=== PATIENT | female | born 1990 | race Two or more races ===

== ENCOUNTER 2017-11-22 11:38 | Emergency (ER) | payer MEDICAID ==
[~2017-11-22] VITALS: Ht 167.6 cm; Wt 59.0 kg
--- NOTE | 2017-11-22 12:00 | NUR ---
AAOX3, CAME TO ER S/P BARTHOLIN'S CYST TREATED AT [facility] 5 DAYS AGO, CATHETER FELL OUT 2 2 DAYS AGO. STILL IN PAIN. SKIN IS WARM AND DRY. AWAITING MD FOR EVAL.
[2017-11-22] MEDS ORDERED: IV NS 0.9% 1,000 ML BAG IV ONE (12:30)
[2017-11-22] MEDS ORDERED: ONDANSETRON HCL/PF 4 MG/2 ML VIAL IVP ONE (12:30)
[2017-11-22] MEDS ORDERED: MORPHINE SULFATE INJ 2 MG/ML DISP.SYRIN IV ONE (12:30)
[2017-11-22] MEDS ORDERED: MORPHINE SULFATE INJ 4 MG/ML DISP.SYRIN ONE (12:51)
[2017-11-22] MEDS ORDERED: ONDANSETRON HCL/PF 4 MG/2 ML VIAL ONE (12:51)
[2017-11-22 12:57] LABS: EOSINOPHILS % (AUTO) 0.3 % (0.0-6.0); HEMATOCRIT 31 % (33-45); HEMOGLOBIN 10.3 g/dL (11.5-14.8); LYMPHOCYTES # (AUTO) 7.9 /CMM (0.8-4.8); LYMPHOCYTES % (AUTO) 91.7 % (20.0-44.0); MEAN CORPUSCULAR HEMOGLOBIN 33 PG (26.0-33.0); MEAN CORPUSCULAR HGB CONC 34 g/dl (31.0-36.0); MEAN CORPUSCULAR VOLUME 99 fL (82-100); MONOCYTES # (AUTO) 0.1 /CMM (0.1-1.30); MONOCYTES % (AUTO) 0.8 % (2.0-12.0); NEUTROPHILS # (AUTO) 0.6 /CMM (1.8-8.9); NEUTROPHILS % (AUTO) 7.2 % (43.0-81.0); PLATELET COUNT (AUTO) 82 /CMM (150-450); RDW COEFFICIENT OF VARIATION 12.9 (11.5-15.0); WHITE BLOOD COUNT (AUTO) 8.6 K/uL (4.3-11.0)
[2017-11-22 13:04] LABS: CALCIUM, SERUM 9.7 mg/dL (8.5-10.1); CREATININE 0.8 mg/dL (0.6-1.3); POTASSIUM 3.9 mmol/L (3.5-5.1)
--- NOTE | 2017-11-22 13:20 | NUR ---
Patient is resting comfortably in bed with eyes closed. Easily aroused. VSS
[2017-11-22 13:42] LABS: LYMPHOCYTES % (MANUAL) 88 % (16-48); MONOCYTES % (MANUAL) 2 % (0-11.0); NEUTROPHILS % (MANUAL) 7 (42-76); REACTIVE LYMPHOCYTES 3 % (0-0)
[2017-11-22] MEDS ORDERED: CT SWABBABLE VALVE TRANS SET 1 EA INFUS.SET MC ONE (13:53)
[2017-11-22] MEDS ORDERED: IOHEXOL-300 100 ML VIAL IV ONE (13:53)
[2017-11-22] MEDS ORDERED: IV NS 0.9% 250 ML IV ONE (13:54)
[2017-11-22 14:12] LABS: APPEARANCE,URINE Clear (CLEAR); BILIRUBIN,URINE Negative (NEGATIVE); BLOOD, URINE Trace-intact Ery/uL (NEGATIVE); COLOR,URINE Yellow (YELLOW); KETONES,URINE Negative (NEGATIVE); LEUKOCYTE ESTERASE ,URINE Negative (NEGATIVE); NITRITE, URINE Negative (NEGATIVE); PROTEIN,URINE Negative (NEGATIVE); UGLUCOSE Negative (NEGATIVE); UROBILINOGEN,URINE 0.2 EU/dL (0.2)
[2017-11-22 14:21] LABS: WBC,URINE 0-3 /HPF (0-3)
[2017-11-22 14:23] LABS: SQUAMOUS EPITHELIAL CELL,UR Moderate /HPF (None Seen)
[2017-11-22 14:24] LABS: BACTERIA,URINE Few /HPF (None Seen)
[2017-11-22] MEDS ORDERED: HYDROMORPHONE 1 MG/1 ML DISP.SYRIN IV ONE (14:30)
[2017-11-22] MEDS ORDERED: HYDROMORPHONE 1 MG/1 ML DISP.SYRIN ONE (15:04)
--- NOTE | 2017-11-22 17:18 | NUR ---
IV removed. Catheter intact and site benign. Pressure and 4x4 applied to site. No bleeding noted.Patient discharged to home in stable condition. Written and verbal after care instructions given. Patient verbalizes understanding of instruction.
[2017-11-22 17:21] VITALS: BP 132/75
== END 2017-11-22 17:22 | disposition home or self-care (01) ==
LOC: ER 11:46
DX: N99.89 Other postprocedural complications and disorders of genitourinary system (principal); R10.2 Pelvic and perineal pain; D64.9 Anemia, unspecified; D69.6 Thrombocytopenia, unspecified; E86.0 Dehydration; Z87.412 Personal history of vulvar dysplasia
CPT/HCPCS: 36415; 76856-TC; 80048-TC; 81000-TC; 84703-TC; 85025-TC; A4606; J1170; J2270; J2405; J7030; J7050; Q9967; Z7610

== ENCOUNTER 2017-11-24 23:54 | Emergency (ER) | payer MEDICAID ==
[~2017-11-24] VITALS: Ht 165.1 cm; Wt 56.7 kg
[2017-11-25] MEDS ORDERED: ONDANSETRON HCL/PF 4 MG/2 ML VIAL ONE (00:10)
[2017-11-25] MEDS ORDERED: HYDROMORPHONE INJ 2 MG/ML DISP.SYRIN ONE ×2 (00:10→01:40)
--- NOTE | 2017-11-25 00:15 | NUR ---
BIB BOYFRIEND. PT C/O ABD PAIN WITH NAUSEA. AMBULATORY TO ER BED 5. PT PLACED ON MONITOR. IV START TIME 0015. IV PLACED ON LEFT AC. 20G. IV INTACT AND NOT INFILTRATED. LABS DRAWN AND GIVEN TO FIELD SERVICE MANAGER AT BEDSIDE. MEDICATIONS GIVEN PER MD ORDER.
[2017-11-25 00:23] LABS: BASOPHILS # (AUTO) 0.1 /CMM (0.0-0.2); HEMOGLOBIN 9.9 g/dL (11.5-14.8)
[2017-11-25 00:25] LABS: BASOPHILS % (AUTO) 0.6 % (0.0-2.0); HEMATOCRIT 29 % (33-45); LYMPHOCYTES # (AUTO) 7.6 /CMM (0.8-4.8); LYMPHOCYTES % (AUTO) 87.1 % (20.0-44.0); MEAN CORPUSCULAR HEMOGLOBIN 35 PG (26.0-33.0); MEAN CORPUSCULAR HGB CONC 34 g/dl (31.0-36.0); MEAN CORPUSCULAR VOLUME 103 fL (82-100); MONOCYTES # (AUTO) 0.3 /CMM (0.1-1.30); NEUTROPHILS # (AUTO) 0.7 /CMM (1.8-8.9); NEUTROPHILS % (AUTO) 8.3 % (43.0-81.0); PLATELET COUNT (AUTO) 62 /CMM (150-450); RDW COEFFICIENT OF VARIATION 13.1 (11.5-15.0); RED BLOOD CELL COUNT(AUTO) 2.86 MIL/uL (4.0-5.2); WHITE BLOOD COUNT (AUTO) 8.8 K/uL (4.3-11.0)
[2017-11-25 00:28] LABS: CALCIUM, SERUM 8.5 mg/dL (8.5-10.1); CREATININE 0.8 mg/dL (0.6-1.3); POTASSIUM 3.6 mmol/L (3.5-5.1)
[2017-11-25] MEDS ORDERED: IV NS 0.9% 1,000 ML BAG IV ONE ×3 (00:30→01:30)
[2017-11-25] MEDS ORDERED: ONDANSETRON HCL/PF 4 MG/2 ML VIAL IVP ONE (00:30)
[2017-11-25] MEDS ORDERED: HYDROMORPHONE 1 MG/1 ML DISP.SYRIN IV ONE (00:30)
[2017-11-25] MEDS ORDERED: ONDANSETRON HCL/PF - ER 4 MG/2 ML VIAL IV ONE (00:30)
[2017-11-25 00:34] LABS: BILIRUBIN,DIRECT 0.2 mg/dL (0.0-0.2); BILIRUBIN,TOTAL 0.8 mg/dL (0.2-1.0); TOTAL PROTEIN, SERUM 6.6 g/dL (6.4-8.2)
[2017-11-25 00:36] LABS: EOSINOPHILS % (MANUAL) 3 % (0-4); LYMPHOCYTES % (MANUAL) 90 % (16-48); MONOCYTES % (MANUAL) 1 % (0-11.0); NEUTROPHILS % (MANUAL) 6 (42-76)
--- NOTE | 2017-11-25 01:00 | NUR ---
PT UNABLE TO PROVIDE URINE. VERBAL ORDER BY MD FOR 1L NS IV BOLUS NOW. PT MEDICATED.
--- NOTE | 2017-11-25 01:29 | NUR ---
URINE COLLECTED. CALLED LAB FOR CONSTRUCTION SCHEDULER
[2017-11-25] MEDS ORDERED: HYDROMORPHONE INJ 2 MG/ML DISP.SYRIN IV ONE (01:30)
[2017-11-25] MEDS ORDERED: HYDROMORPHONE 1 MG/1 ML DISP.SYRIN ONE (01:33)
[2017-11-25 01:36] LABS: APPEARANCE,URINE SL CLOUDY (CLEAR); BILIRUBIN,URINE NEGATIVE (NEGATIVE); BLOOD, URINE 3+ Ery/uL (NEGATIVE); COLOR,URINE YELLOW (YELLOW); KETONES,URINE NEGATIVE (NEGATIVE); LEUKOCYTE ESTERASE ,URINE NEGATIVE (NEGATIVE); NITRITE, URINE NEGATIVE (NEGATIVE); PROTEIN,URINE NEGATIVE (NEGATIVE); UGLUCOSE NEGATIVE (NEGATIVE); UROBILINOGEN,URINE 0.2 EU/dL (0.2)
--- NOTE | 2017-11-25 01:42 | NUR ---
INFORMED RADIOLOGY NEG [facility]. PT READY FOR CT.
[2017-11-25] MEDS ORDERED: IOHEXOL-300 100 ML VIAL IV ONE (01:48)
[2017-11-25] MEDS ORDERED: CT SWABBABLE VALVE TRANS SET 1 EA INFUS.SET MC ONE (01:48)
[2017-11-25] MEDS ORDERED: IV NS 0.9% 250 ML IV ONE (01:48)
--- NOTE | 2017-11-25 01:48 | NUR ---
PT BROUGHT BY RADIOLOGY FOR CT
--- NOTE | 2017-11-25 02:00 | NUR ---
PT RETURNED FROM CT.
[2017-11-25 02:11] LABS: BACTERIA,URINE Few /HPF (None Seen); RBC,URINE 81-100 /HPF (0-2); SQUAMOUS EPITHELIAL CELL,UR Few /HPF (None Seen); WBC,URINE 0-2 /HPF (0-3)
--- NOTE | 2017-11-25 02:53 | NUR ---
AT BEDSIDE TO DISCUSS CT RESULTS
--- NOTE | 2017-11-25 03:19 | NUR ---
IV removed. Catheter intact and site benign. Pressure and 4x4 applied to site. No bleeding noted. Patient discharged to home in stable condition. Written and verbal after care instructions given. Patient verbalizes understanding of instruction. Pt ambulatory with a steady gait
[2017-11-25 03:23] VITALS: BP 105/70
== END 2017-11-25 03:27 | disposition home or self-care (01) ==
LOC: ER 23:56
DX: K59.00 Constipation, unspecified (principal); K52.9 Noninfective gastroenteritis and colitis, unspecified; D64.9 Anemia, unspecified
CPT/HCPCS: 36415; 74177; 80048; 80076; 81001; 83690; 84703; 85025; 96361; 96374; 96375; 96376; 99285; A4606; J1170 ×3; J2405; J7030 ×2; J7050; Q9967; Z7610; 81000-TC

== ENCOUNTER 2018-02-01 13:41 | Emergency (ER) | payer SELFPAY ==
[~2018-02-01] VITALS: Ht 160 cm; Wt 52.6 kg
--- NOTE | 2018-02-01 13:55 | NUR ---
PT BIB SELF. COMPLAINING OF "RED SPOTS ALL OVER MY BODY" UPON ASSESSMENT. PRUIRITIS NOTED ON LOWER EXTREMITIES, ABDOMINAL, UPPER EXTREMITIES, FACE/NECK NOTED. PT ALSO STATES "WAS BRUSHING MY TEETH, AND IT WOULDNT STOP BLEEDING, I COULD STOP THE BLEEDING ON MY GUMS". PT AOX4. VISIBLE BRUISES NOTED ON UPPER/LOWER EXTREMITIES. PT AMBULATORY W/STEADY GAIT. MD AT BEDSIDE.
[2018-02-01 14:44] LABS: EOSINOPHILS % (AUTO) 0.2 % (0.0-6.0); HEMATOCRIT 28 % (33-45); HEMOGLOBIN 8.9 g/dL (11.5-14.8); LYMPHOCYTES # (AUTO) 31.8 /CMM (0.8-4.8); LYMPHOCYTES % (AUTO) 98.4 % (20.0-44.0); MEAN CORPUSCULAR HGB CONC 32 g/dl (31.0-36.0); MEAN CORPUSCULAR VOLUME 99 fL (82-100); MONOCYTES # (AUTO) 0.3 /CMM (0.1-1.30); MONOCYTES % (AUTO) 0.9 % (2.0-12.0); NEUTROPHILS # (AUTO) 0.2 /CMM (1.8-8.9); NEUTROPHILS % (AUTO) 0.5 % (43.0-81.0)
--- NOTE | 2018-02-01 14:45 | NUR ---
RAPID STREP/INFLUENZA/ LABS DRAWN.
[2018-02-01 14:51] LABS: CREATININE 0.5 mg/dL (0.6-1.3); POTASSIUM 3.7 mmol/L (3.5-5.1)
[2018-02-01 14:57] LABS: ALBUMIN 3.9 g/dL (3.4-5.0); BILIRUBIN,DIRECT 0.2 mg/dL (0.0-0.2); BILIRUBIN,TOTAL 0.9 mg/dL (0.2-1.0); TOTAL PROTEIN, SERUM 6.9 g/dL (6.4-8.2)
[2018-02-01 15:21] LABS: WHITE BLOOD COUNT (AUTO) 32.3 K/uL (4.3-11.0)
[2018-02-01 15:22] LABS: PLATELET COUNT (AUTO) 3 /CMM (150-450)
[2018-02-01 15:26] LABS: LYMPHOCYTES % (MANUAL) 74 % (16-48); MONOCYTES % (MANUAL) 2 % (0-11.0); NEUTROPHILS % (MANUAL) 3 (42-76)
[2018-02-01 15:33] LABS: MONOTEST NEGATIVE (NEGATIVE)
[2018-02-01 15:38] LABS: APPEARANCE,URINE Cloudy (CLEAR); BILIRUBIN,URINE Negative (NEGATIVE); BLOOD, URINE Trace-lysed Ery/uL (NEGATIVE); COLOR,URINE Yellow (YELLOW); KETONES,URINE Negative (NEGATIVE); LEUKOCYTE ESTERASE ,URINE Negative (NEGATIVE); NITRITE, URINE Negative (NEGATIVE); PROTEIN,URINE Negative (NEGATIVE); UGLUCOSE Negative (NEGATIVE); UROBILINOGEN,URINE 0.2 EU/dL (0.2)
[2018-02-01 15:48] LABS: BACTERIA,URINE Moderate /HPF (None Seen); SQUAMOUS EPITHELIAL CELL,UR Many /HPF (None Seen); WBC,URINE 0-3 /HPF (0-3)
--- NOTE | 2018-02-01 16:00 | NUR ---
Patient is resting comfortably in bed with eyes closed. Easily aroused. VSS
--- NOTE | 2018-02-01 16:35 | NUR ---
MAC NOTIFIED OF HIGHER LEVEL OF CARE.
--- NOTE | 2018-02-01 18:14 | NUR ---
Patient is resting comfortably in bed with eyes closed. Easily aroused. VSS
--- NOTE | 2018-02-01 18:34 | NUR ---
SPOKE WITH JED FROM [facility], DR. FORD ACCEPTED THE PATIENT BUT NO BEDS AVAILABLE. CALL BACK IN THE MORNING TO FOLLOW UP. [phone]
--- NOTE | 2018-02-01 18:54 | NUR ---
CALLED BRENDA, [facility] AND [facility] DO NOT HAVE BEDS. STILL WAITING ON HEARING FROM [facility].
--- NOTE | 2018-02-01 19:00 | NUR ---
MAC CALLED PT IS DENIED AT [facility]. NO BEDS
--- NOTE | 2018-02-01 19:27 | NUR ---
REPORT GIVEN FOR ALBERTINA
--- NOTE | 2018-02-01 19:56 | NUR ---
RESTING QUIETLY, NAD NOTED. FAMILY AT BEDSIDE. VSS. ALL NEEDS ATTENDED TO.
[2018-02-01] MEDS ORDERED: ACETAMINOPHEN 325 MG TABLET ONE (20:22)
[2018-02-01] MEDS ORDERED: ACETAMINOPHEN 650 MG/20.3 ML UDC PO ONE (20:30)
--- NOTE | 2018-02-01 20:37 | NUR ---
PT RESTING QUIETLY BUT REPORTS MODERATE HEADACHE. NOTIFIED MD. ORDER FOR TYLENOL RECEIVED AND ADMINISTERED.
--- NOTE | 2018-02-01 21:31 | NUR ---
CALL [facility] IN THE MORNING FOR UPDATE ON BED. [phone]
--- NOTE | 2018-02-01 21:55 | NUR ---
resting comfortably, NAD noted, VSS.
[2018-02-01] MEDS ORDERED: IV NS 0.9% 1,000 ML BAG IV ONE (23:00)
[2018-02-01 23:16] LABS: PHOSPHORUS 3.7 mg/dL (2.5-4.9); URIC ACID 3.9 mg/dL (2.6-7.2)
--- NOTE | 2018-02-01 23:26 | NUR ---
CONSENT OBTAINED FOR PLATELET TRANSFUSION. PER BLOOD BANK, 2-3 HOURS UNTIL PLATELETS WILL BE READY. ALL NEEDS ATTENDED TO AND QUESTIONS ANSWERED. WITH BOYFRIEND AT BEDSIDE.
--- NOTE | 2018-02-02 00:05 | NUR ---
ISOLATION CART PLACED OUTSIDE.
--- NOTE | 2018-02-02 00:05 | NUR ---
REPORT REC'D FROM JUAN DREW FOR ALBERTINA. PT PLACED ON REVERSE ISOLATION.
--- NOTE | 2018-02-02 00:24 | NUR ---
2ND LITER NS INFUSING AT 200ML/HR VIA 20G LAC
[2018-02-02] MEDS ORDERED: ACETAMINOPHEN 325 MG TABLET PO ONE (01:00)
--- NOTE | 2018-02-02 01:40 | NUR ---
PLATELET TRANSFUSION STARTED. VSS.
[2018-02-02] MEDS ORDERED: IBUPROFEN 400 MG TABLET ONE (01:50)
--- NOTE | 2018-02-02 01:54 | NUR ---
PT REC'D MEDICATION ORDERED.
[2018-02-02] MEDS ORDERED: IBUPROFEN 400 MG TABLET PO ONE (02:00)
--- NOTE | 2018-02-02 02:14 | NUR ---
PT APPEARS TO BE RESTING COMFORTABLY WITH NO S/S OF PAIN OR DISTRESS.
--- NOTE | 2018-02-02 02:45 | NUR ---
PT AMBULATED TO THE BATHROOM WITH A STEADY GAIT. PT'S BOYFRIEND IS WITH HER. PT STATED THAT THE JOINT PAIN HAS NOT CHANGED. PAIN IS STILL 7/10
--- NOTE | 2018-02-02 03:05 | NUR ---
2ND UNIT OF PLATELETS STARTED.
--- NOTE | 2018-02-02 03:15 | NUR ---
PT APPEARS TO BE RESTING COMFORTABLY WITH NO S/S OF PAIN OR DISTRESS. NO REACTION NOTED. VSS. RESP EVEN AND UNLABORED. BILATERAL LUNG SOUNDS ARE CLEAR.
[2018-02-02] MEDS ORDERED: ONDANSETRON 4 MG TAB.RAPDIS ONE (03:25)
[2018-02-02] MEDS ORDERED: HYDROCODONE/APAP 5/325MG 1 EACH TABLET ONE (03:25)
[2018-02-02] MEDS ORDERED: HYDROCODONE/APAP 5/325MG 1 EACH TABLET PO ONE (03:30)
[2018-02-02] MEDS ORDERED: ONDANSETRON 4 MG TAB.RAPDIS PO ONE (03:30)
--- NOTE | 2018-02-02 04:05 | NUR ---
TRANSFUSION FINISHED. NO REACTION NOTED. VSS. PT APPEARS TO BE RESTING COMFORTABLY. RESP EVEN AND UNLABORED.
--- NOTE | 2018-02-02 04:37 | NUR ---
PT REC'D ANOTHER PILLOW. PT STATED THAT SHE FEELS WARM. ORAL TEMP 99.0F RESP EVEN AND UNLABORED. O2 SAT IS 98% ON RA.
--- NOTE | 2018-02-02 05:18 | NUR ---
PT APPEARS TO BE SLEEPING SOUNDLY WITH NO S/S OF PAIN OR DISTRESS. VSS.
--- NOTE | 2018-02-02 06:10 | NUR ---
CORN DETASSELER IS AT THE BEDSIDE FOR BLOOD DRAW.
[2018-02-02 06:26] LABS: CALCIUM, SERUM 8.2 mg/dL (8.5-10.1); CREATININE 0.5 mg/dL (0.6-1.3); POTASSIUM 3.4 mmol/L (3.5-5.1)
[2018-02-02 06:29] LABS: BASOPHILS % (AUTO) 0.1 % (0.0-2.0); EOSINOPHILS % (AUTO) 0.3 % (0.0-6.0); HEMATOCRIT 23 % (33-45); HEMOGLOBIN 7.3 g/dL (11.5-14.8); LYMPHOCYTES # (AUTO) 23.2 /CMM (0.8-4.8); LYMPHOCYTES % (AUTO) 98.8 % (20.0-44.0); MEAN CORPUSCULAR HGB CONC 32 g/dl (31.0-36.0); MEAN CORPUSCULAR VOLUME 99 fL (82-100); MONOCYTES # (AUTO) 0.1 /CMM (0.1-1.30); MONOCYTES % (AUTO) 0.5 % (2.0-12.0); NEUTROPHILS # (AUTO) 0.1 /CMM (1.8-8.9); NEUTROPHILS % (AUTO) 0.3 % (43.0-81.0); PHOSPHORUS 4.3 mg/dL (2.5-4.9); RED BLOOD CELL COUNT(AUTO) 2.27 MIL/uL (4.0-5.2); WHITE BLOOD COUNT (AUTO) 23.5 K/uL (4.3-11.0)
[2018-02-02 06:33] LABS: URIC ACID 3.1 mg/dL (2.6-7.2)
[2018-02-02 06:36] LABS: PLATELET COUNT (AUTO) 48 /CMM (150-450)
--- NOTE | 2018-02-02 07:00 | NUR ---
REPORT RECEIVED FROM LASHONDA MARTINEZ,[facility] WANTS TO BE CALLED AFTER 1000 TO F/U BED AVAILABILITY
--- NOTE | 2018-02-02 07:02 | NUR ---
CALLING [facility] TO SEE IF THERE IS A BED AVAILABLE.
--- NOTE | 2018-02-02 07:04 | NUR ---
SPOKE TO JUAN KEITA AT [facility] RE: AN AVAILABLE BED. [facility] WILL NOT KNOW UNTIL AFTER 10:30AM
--- NOTE | 2018-02-02 07:15 | NUR ---
PT AMBULATED TO THE BATHROOM WITH A STEADY GAIT.
--- NOTE | 2018-02-02 07:20 | NUR ---
REPORT GIVEN TO JUAN CARREON FOR ALBERTINA.
--- NOTE | 2018-02-02 07:34 | NUR ---
RECVD REPORT FROM ROHIT. PATIENT REMAINS STABLE, VSS ARE STABLE. CALM AND COLLECTIVE. BREATHING EVEN AND UNLABORED WITH NO SOB OR DISTRESS NOTED. SIGNIFICANT OTHER AT BEDSIDE. WILL CONTINUE TO MONITOR
--- NOTE | 2018-02-02 08:57 | NUR ---
PATIENT SIGNED AND AGREED AMA. PATIENT SIGNIFICANT OTHER WILL BE TAKING PATIENT TO [facility] ER. AND CHARGE NURSE MADE AWARE. BELONGINGS TAKEN BY PATIENT AND LIST SIGNED.
[2018-02-02 08:59] VITALS: BP 112/70
--- NOTE | 2018-02-02 08:59 | NUR ---
Patient discharged to home in stable condition. Written and verbal after care instructions given. Patient verbalizes understanding of instruction.
[2018-02-02 09:34] LABS: LYMPHOCYTES % (MANUAL) 97 % (16-48); MONOCYTES % (MANUAL) 2 % (0-11.0); NEUTROPHILS % (MANUAL) 1 (42-76)
[2018-02-02 17:20] LABS: BLASTS, MANUAL % 21 % (0-0)
== END 2018-02-02 10:01 | disposition left against medical advice (07) ==
LOC: ER 13:42
DX: D69.6 Thrombocytopenia, unspecified (principal); C95.00 Acute leukemia of unspecified cell type not having achieved remission; D64.9 Anemia, unspecified; J02.9 Acute pharyngitis, unspecified; R31.9 Hematuria, unspecified; M79.81 Nontraumatic hematoma of soft tissue
CPT/HCPCS: 36415 ×2; 36430; 80048 ×2; 80076; 81001; 83615; 84100 ×2; 84550 ×2; 84703; 85025 ×2; 85652; 85730 ×2; 86140; 86308; 86850; 87070; 87077; 87081; 87086; 87186; 87804; 87806; 87880; 99285; A4606; J7030 ×2; J7040; P9034 ×2; Q0162; Z7610; 81000-TC; 86403-TC; 87400; P9016-BL

== ENCOUNTER 2019-03-27 11:23 | Emergency (ER) | payer MEDICAID ==
[~2019-03-27] VITALS: Ht 162.6 cm; Wt 56.7 kg
--- NOTE | 2019-03-27 11:23 | NUR ---
NAUSEA/VOMITING AND ABDOMINAL PAIN X 2 DAYSM, PT AWAKE, ALERT, -SOB, NAD NOTED, VSS ,PENDING MD GARCIA
[2019-03-27] MEDS ORDERED: MORPHINE SULFATE INJ 4 MG/ML DISP.SYRIN ONE (11:52)
[2019-03-27] MEDS ORDERED: ONDANSETRON HCL/PF 4 MG/2 ML VIAL ONE ×2 (11:52→13:03)
[2019-03-27] MEDS ORDERED: IV NS 0.9% 1,000 ML BAG IV ONE (12:00)
[2019-03-27] MEDS ORDERED: MORPHINE SULFATE INJ 2 MG/ML DISP.SYRIN IV ONE (12:00)
[2019-03-27] MEDS ORDERED: ONDANSETRON HCL/PF 4 MG/2 ML VIAL IVP ONE (12:00)
[2019-03-27 12:03] LABS: BASOPHILS % (AUTO) 0.8 % (0.0-2.0); EOSINOPHILS % (AUTO) 0.7 % (0.0-6.0); HEMATOCRIT 44 % (33-45); HEMOGLOBIN 14.7 g/dL (11.5-14.8); LYMPHOCYTES # (AUTO) 1.4 /CMM (0.8-4.8); LYMPHOCYTES % (AUTO) 37.8 % (20.0-44.0); MEAN CORPUSCULAR HGB CONC 34 g/dl (31.0-36.0); MEAN CORPUSCULAR VOLUME 92 fL (82-100); MONOCYTES # (AUTO) 0.2 /CMM (0.1-1.30); MONOCYTES % (AUTO) 5.8 % (2.0-12.0); NEUTROPHILS % (AUTO) 54.9 % (43.0-81.0); PLATELET COUNT (AUTO) 253 /CMM (150-450); RED BLOOD CELL COUNT(AUTO) 4.74 MIL/uL (4.0-5.2); WHITE BLOOD COUNT (AUTO) 3.6 K/uL (4.3-11.0)
[2019-03-27 12:11] LABS: CREATININE 0.8 mg/dL (0.6-1.3); POTASSIUM 3.8 mmol/L (3.5-5.1)
[2019-03-27 12:17] LABS: ALBUMIN 4.1 g/dL (3.4-5.0); BILIRUBIN,DIRECT 0.2 mg/dL (0.0-0.2); TOTAL PROTEIN, SERUM 6.9 g/dL (6.4-8.2)
[2019-03-27] MEDS ORDERED: ONDANSETRON HCL/PF 4 MG/2 ML VIAL IV ONE (13:30)
[2019-03-27] MEDS ORDERED: HYDROMORPHONE 1 MG/1 ML DISP.SYRIN ONE (13:54)
[2019-03-27] MEDS ORDERED: HYDROMORPHONE INJ 2 MG/ML DISP.SYRIN IV ONE (14:00)
[2019-03-27 15:00] VITALS: BP 120/75
--- NOTE | 2019-03-27 15:45 | NUR ---
Patient discharged to home in stable condition. Written and verbal after care instructions given. Patient verbalizes understanding of instruction. IV removed. Catheter intact and site benign. Pressure and 4x4 applied to site. No bleeding noted.
== END 2019-03-27 15:46 | disposition home or self-care (01) ==
LOC: ER 11:23
DX: K80.20 Calculus of gallbladder without cholecystitis without obstruction (principal); G89.29 Other chronic pain; R11.2 Nausea with vomiting, unspecified; F10.10 Alcohol abuse, uncomplicated; Y90.9 Presence of alcohol in blood, level not specified; Z85.6 Personal history of leukemia; Z94.81 Bone marrow transplant status
CPT/HCPCS: 36415; 74176; 76705; 80048; 80076; 83690; 85025; 96361; 96374; 96375; 96376; 99284; J1170; J2270; J2405 ×2; J7030

== ENCOUNTER 2019-04-02 12:45 | Emergency (ER) | payer MEDICAID ==
[~2019-04-02] VITALS: Ht 162.6 cm; Wt 53.1 kg
--- NOTE | 2019-04-02 12:55 | NUR ---
DEGRASSE DEVELOPMENT EDUCATOR AT BEDSIDE FOR EVAL.
[2019-04-02] MEDS ORDERED: oxyCODONE/APAP (5/325 MG) 1 UDTAB TABLET PO ONE (13:00)
[2019-04-02] MEDS ORDERED: oxyCODONE/APAP (5/325 MG) 1 UDTAB TABLET ONE (13:04)
[2019-04-02] MEDS ORDERED: ONDANSETRON HCL/PF 4 MG/2 ML VIAL ONE (13:13)
[2019-04-02] MEDS ORDERED: KETOROLAC TROMETHAMINE INJ 30 MG/ML VIAL ONE (13:13)
--- NOTE | 2019-04-02 13:37 | NUR ---
Patient discharged to home in stable condition. Written and verbal after care instructions given. Patient verbalizes understanding of instruction.
[2019-04-02 13:38] VITALS: BP 103/65
== END 2019-04-02 13:38 | disposition home or self-care (01) ==
LOC: ER 12:45
DX: G89.29 Other chronic pain (principal); Z76.0 Encounter for issue of repeat prescription; C92.00 Acute myeloblastic leukemia, not having achieved remission; Z98.890 Other specified postprocedural states
CPT/HCPCS: J1885; J2405

== ENCOUNTER 2019-04-20 21:25 | Emergency (ER) | payer MEDICAID ==
[~2019-04-20] VITALS: Ht 162.6 cm; Wt 52.2 kg
--- NOTE | 2019-04-20 22:05 | NUR ---
PT CAME FROM HOME C/O RIGHT HIP PAIN, AND TAIL BONE PAIN S/P GROUND LEVEL FALL. PT DENIES LOSING CONSCIOUS. PT STATES SHE HIT THE BACK OF HER HEAD. RIGHT UPPR RIBCAGE PAIN WELL. AAOX4. NO SOB. CONNECTED TO MONITOR.
[2019-04-20] MEDS ORDERED: HYDROCODONE/APAP 5/325MG 1 EACH TABLET ONE (22:12)
--- NOTE | 2019-04-20 22:16 | NUR ---
PATIENT SIGNED WAIVER FORM.
--- NOTE | 2019-04-20 22:25 | NUR ---
ROUTER TENDER AT BEDSIDE
[2019-04-20] MEDS ORDERED: HYDROCODONE/APAP 5/325MG 1 EACH TABLET PO ONE (22:30)
[2019-04-20] MEDS ORDERED: ONDANSETRON 4 MG TAB.RAPDIS SL ONE (23:00)
[2019-04-20] MEDS ORDERED: ONDANSETRON 4 MG TAB.RAPDIS ONE (23:01)
--- NOTE | 2019-04-20 23:42 | NUR ---
Patient discharged to home in stable condition. Written and verbal after care instructions given. Patient verbalizes understanding of instruction.
[2019-04-20 23:43] VITALS: BP 107/66
== END 2019-04-20 23:43 | disposition home or self-care (01) ==
LOC: ER 21:26
DX: S70.01XA Contusion of right hip, initial encounter (principal); M53.3 Sacrococcygeal disorders, not elsewhere classified; G89.29 Other chronic pain; Z98.890 Other specified postprocedural states; Z85.6 Personal history of leukemia; W06.XXXA Fall from bed, initial encounter; Y93.89 Activity, other specified; Y92.89 Other specified places as the place of occurrence of the external cause; Y99.8 Other external cause status
CPT/HCPCS: 72220; 73502; 99283; Q0162

== ENCOUNTER 2019-08-08 13:23 | Emergency (ER) | payer MEDICAID ==
[~2019-08-08] VITALS: Ht 162.6 cm; Wt 58.1 kg
[2019-08-08] MEDS ORDERED: IV NS 0.9% 1,000 ML BAG IV ONE (15:00)
--- NOTE | 2019-08-08 15:26 | NUR ---
BIB BF FROM HOME C/O HEAD PAIN S/P GLF, -KO, +FEVER ON CHEMO THERAPY. PT AAOX4, VSS. DENIES CP, SOB, DIZZINESS, N/V/D @ THIS TIME. PT SEEN & EVAL'D BY DR. ADAME. WILL CONT TO MONITOR.
[2019-08-08 15:37] LABS: BASOPHILS % (AUTO) 0.3 % (0.0-2.0); EOSINOPHILS % (AUTO) 0.4 % (0.0-6.0); HEMATOCRIT 37 % (33-45); HEMOGLOBIN 12.6 g/dL (11.5-14.8); LYMPHOCYTES # (AUTO) 1.8 /CMM (0.8-4.8); LYMPHOCYTES % (AUTO) 29.1 % (20.0-44.0); MEAN CORPUSCULAR HGB CONC 34 g/dl (31.0-36.0); MEAN CORPUSCULAR VOLUME 92 fL (82-100); MONOCYTES # (AUTO) 0.4 /CMM (0.1-1.30); MONOCYTES % (AUTO) 6.7 % (2.0-12.0); NEUTROPHILS # (AUTO) 3.9 /CMM (1.8-8.9); NEUTROPHILS % (AUTO) 63.5 % (43.0-81.0); PLATELET COUNT (AUTO) 205 /CMM (150-450); RED BLOOD CELL COUNT(AUTO) 4.06 MIL/uL (4.0-5.2); WHITE BLOOD COUNT (AUTO) 6.1 K/uL (4.3-11.0)
--- NOTE | 2019-08-08 15:46 | NUR ---
PT TO RADIOLOGY FOR HEAD CT SCAN VIA WHEELCHAIR. STATES NO CHANCE OF BEING . WILLING TO SIGN WAIVER.
[2019-08-08 15:55] LABS: CALCIUM, SERUM 9.3 mg/dL (8.5-10.1); POTASSIUM 3.8 mmol/L (3.5-5.1)
[2019-08-08 16:00] LABS: ALBUMIN 3.8 g/dL (3.4-5.0); BILIRUBIN,DIRECT 0.1 mg/dL (0.0-0.2); BILIRUBIN,TOTAL 0.5 mg/dL (0.2-1.0); TOTAL PROTEIN, SERUM 6.5 g/dL (6.4-8.2)
[2019-08-08 16:01] LABS: APPEARANCE,URINE Clear (CLEAR); BILIRUBIN,URINE Negative (NEGATIVE); BLOOD, URINE Negative Ery/uL (NEGATIVE); COLOR,URINE Yellow (YELLOW); KETONES,URINE Negative (NEGATIVE); LEUKOCYTE ESTERASE ,URINE Trace (NEGATIVE); NITRITE, URINE Negative (NEGATIVE); PROTEIN,URINE Negative (NEGATIVE); UGLUCOSE Negative (NEGATIVE); UROBILINOGEN,URINE 0.2 EU/dL (0.2)
[2019-08-08 16:09] LABS: BACTERIA,URINE None seen /HPF (None Seen); RBC,URINE 0-2 /HPF (0-2); SQUAMOUS EPITHELIAL CELL,UR Few /HPF (None Seen)
[2019-08-08 18:25] VITALS: BP 110/70
== END 2019-08-08 18:26 | disposition home or self-care (01) ==
LOC: ER 13:23
DX: J18.9 Pneumonia, unspecified organism (principal); E86.0 Dehydration; R51 Headache; Z98.890 Other specified postprocedural states
CPT/HCPCS: 36415; 70450; 71045; 76705; 80048; 80076; 81001; 83605; 84145; 85025; 85730; 87040 ×2; 87086; 93005; 96360; 96361; 99285; J7030; 81000-TC